=== PATIENT | female | born 1975 | race Caucasian/White ===

== ENCOUNTER → 2024-05-27 17:22 | Outpatient (REF) | payer OTHER, SELFPAY | LOC: WDC 17:22 | PROVIDERS: ATTENDING PHYSICIAN Nurse Practitioner Adult Health | DX: Z12.31 Encounter for screening mammogram for malignant neoplasm of breast (principal) | CPT/HCPCS: 77063; 77067 ==

== ENCOUNTER 2024-10-23 06:33 | Day surgery (SDC) | payer OTHER, SELFPAY | END 2024-10-23 14:44 | disposition home or self-care (01) | LOC: GI 06:33 | PROVIDERS: ATTENDING PHYSICIAN Student in an Organized Health Care Education/Training Program | DX: Z12.11 Encounter for screening for malignant neoplasm of colon (principal); K62.1 Rectal polyp; K62.89 Other specified diseases of anus and rectum; Z83.719 Family history of colon polyps, unspecified | CPT/HCPCS: 45380; 88305 ==